=== PATIENT | female | born 1965 | race Caucasian/White ===

== ENCOUNTER 2020-02-11 04:31 | Day surgery (SDC) | payer OTHER ==
--- OUTSIDE RECORDS SUMMARY | 2020-01-31 07:52 | XMS ---
:1965 Author Organization [facility] Support Name Relationship Address Phone [facility] Unavailable [address] [place] [address] FAVIOLA FISHER SON [address] [address] Re-disclosure Warning The records that you are about to access may contain information from federally- assisted alcohol or drug abuse programs. If such information is present, then the following federally mandated warning applies: This information has been disclosed to you from records protected by federal confidentiality rules (42 CFR part 2). The federal rules prohibit you from making any further disclosure of this information unless further disclosure is expressly permitted by the written consent of the person to whom it pertains or as otherwise permitted by 42 CFR part 2. A general authorization for the release of medical or other information is NOT sufficient for this purpose. The Federal rules restrict any use of the information to criminally investigate or prosecute any alcohol or drug abuse patient.The records that you are about to access may contain highly sensitive health information, the redisclosure of which is protected by Article 27-F of the [facility] Public Health law. If you continue you may haveaccess to information: Regarding HIV / AIDS; Provided by facilities licensed or operated by the [facility] Office of Mental Health; or Provided by the [facility] Office for People With Developmental Disabilities. If such information is present, then the following [facility] mandated warning applies: This information has been disclosed to you from confidential records which are protected by state law. State law prohibits you from making any further disclosure of this information without the specific written consent of the person to whom it pertains, or as otherwise permitted by law. Any unauthorized further disclosure in violation of state law may result in a fine or fpc sentence or both. A general authorization for the release of medical or other information is NOT sufficient authorization for further disclosure. Insurance Providers Payer name Policy type / Policy ID Covered Covered constitution party's Policy Plan Coverage type constitution party ID relationship to Clark Information clark [employer] HMO [id number] SP [id number] Results ID Date Data Source [id number] 12/03/2019 12:00:00 AM EDT [facility] Name Value Range Interpretation Code Description Data Sultana rce(s) Supporting Document(s ) 2019-nCoV [facility] RNA XXX ISELA+probe- Imp [facility] and reported by [employer]. ID Date Data Source [id number] 09/04/2019 05:09:00 PM EDT [facility] Name Value Range Interpretation Description Data Sup porting Code Source(s) Document(s ) 2019 Novel [facility] Coronavirus RNA Interpretation Unspecified Specimen Qualitative ISELA Probe Detection This lab was ordered by [facility] and reported by [facility]. Procedure
[2020-02-10 14:07] VITALS: BMI 23.6
--- OUTSIDE RECORDS SUMMARY | 2020-02-11 04:35 | XMS ---
:1965 Author Organization [facility] Support Name Relationship Address Phone [facility] Unavailable [address] [phone] [place] [address] FAVIOLA FISHER SON [address] [place] [address] Re-disclosure Warning The records that you are [...] is protected by Article 27-F of the [facility] Public Health law. If you continue you may haveaccess to information: Regarding HIV / AIDS; Provided by facilities licensed or operated by the [facility] Office of Mental Health; or Provided by the [facility] Office for People With Developmental Disabilities. If such information is present, then the following [facility] mandated warning applies: This information has been [...] law may result in a fine or senior care sentence or both. A general authorization for the release of medical or other information is NOT sufficient authorization for further disclosure. Insurance Providers Payer name Policy type / Policy ID Covered Covered green party's Policy Plan Coverage type green party ID relationship to Clark Information clark [employer] HMO [id number] SP [id number] 5 Results ID Date Data Source [id number] 02/06/2020 05:36:00 PM EDT [facility] Name Value Range Interpretation Description Data Sup porting Code Source(s) Document(s ) SARS [facility] coronavirus 2 RNA This lab was ordered by [facility] and reported by [facility]. ID Date Data Source [id number] 12/03/2019 12:00:00 AM EDT [facility] Name Value Range Interpretation Code Description Data Sultana rce(s) Supporting Document(s ) 2019-nCoV [facility] RNA XXX ISELA+probe- Imp This lab [facility] by [facility] and reported by [employer] ID Date Data Source [id number] 09/04/2019 05:09:00 PM EDT [facility] Name Value Range Interpretation Description Data Sup porting Code Source(s) Document(s ) 2019 Novel [facility] Coronavirus RNA Interpretation Unspecified Specimen Qualitative ISELA Probe Detection This lab was ordered by [facility] and reported by [facility]. Procedure
[2020-02-11] MEDS ORDERED: MIDAZOLAM HCL 2 MG/2 ML SINGLE DOSE VIAL ONE (14:25)
[2020-02-11] MEDS ORDERED: PROPOFOL 20 ML ONE (14:25)
[2020-02-11] MEDS ORDERED: DEXAMETHASONE SOD PHOSPHATE 4 MG/1 ML VIAL ONE (14:37)
[2020-02-11] MEDS ORDERED: KETOROLAC TROMETHAMINE 30 MG/1 ML VIAL ONE (14:37)
[2020-02-11] MEDS ORDERED: LIDOCAINE HCL/PF 2% SDV 5ML VIAL ONE (14:37)
[2020-02-11] MEDS ORDERED: ceFAZolin SODIUM 1 GM VIAL ONE (14:50)
[2020-02-11] MEDS ORDERED: ceFAZolin SODIUM 1 GM VIAL IVPB ONE (14:50)
--- NOTE | 2020-02-11 15:58 | OP ---
DATE OF OPERATION: 02/11/2020 PREOPERATIVE DIAGNOSIS: Tenosynovitis of the right wrist. POSTOPERATIVE DIAGNOSIS: Partial rupture from the extensor plus tenosynovitis. SURGEON: Mark Joseph MD ANESTHESIA: General. PROCEDURE: Tenosynovectomy and debridement of extensor tendon. DESCRIPTION OF PROCEDURE: After the induction of general anesthesia and with the tourniquet applied and inflated at the proximal aspect of the limb, the entire hand and forearm now were prepped and draped in the usual manner. A 4 cm incision extending from the tip of the radial styloid proximally. It was deepened through the subcutaneous tissue. The sensory branch of the radial nerve was identified and retracted. At this point the finger palpation indicated evidence of fluctuation along the tendon, but it was difficult to assess the exact nature of the pathology. An incision was made in the hernesto of the extensor tendon which was found to be quite thickened and at this point a large amount of serous fluid extruded out of the joint. The release now was extended distally and proximally and at this point there was an obvious partial tear of the extensor tendon with a small flap emanating from the body of the tendon. There was no evidence of complete disruption. Debridement of the damaged tendon was done. The testing of the tendon showed the integrity. A partial excision of the hernesto was done. Hemostasis was obtained and the wound closed in a single layer of 4-0 nylon. A dressing was applied. The tourniquet was deflated. Prompt circulation returned to the limb. The patient tolerated the procedure and left the operating room in excellent condition. Yanna [id number]
[2020-02-11] MEDS ORDERED: ONDANSETRON 4 MG/2 ML VIAL IVPUSH PRN (16:18)
[2020-02-11] MEDS ORDERED: oxyCODONE HCL 5 MG TABLET PO PRN (16:18)
[2020-02-11] MEDS ORDERED: LACTATED RINGERS SOLUTION 1,000 ML IV SCH (16:30)
[2020-02-11] MEDS ORDERED: oxyCODONE HCL 5 MG TABLET ONE (17:33)
[2020-02-11 17:42] VITALS: TEMP 97.7
[2020-02-11 18:01] VITALS: BP 114/77; PULSE 62
--- NOTE | 2020-02-13 17:35 | PATH ---
Surgical Pathology Report Patient Name: SELWYN WILKINSON [facility]. Rec. #: [id number] /Age/Gender: 1965 (Age: 54) / F Account: [id number] Location: [facility] SUR[facility] Taken: 02/11/2020 Received: 02/12/2020 Reported: 02/13/2020 Physicians: Mark Joseph M.D. Specimen(s) Received RIGHT TENOSYNOVIUM Clinical History Right radial styloid tendon synovitis Final Diagnosis TENOSYNOVIUM, RIGHT, TENOSYNOVECTOMY: BENIGN DENSE FIBROCONNECTIVE TISSUE. Electronically Signed Janneth Cantor M.D. Gross Description Received in formalin labeled "right tenosynovium," are 3 banerjee-yellow fragments of soft tissue ranging from 0.3-0.9 cm in greatest dimension, consistent with tenosynovium. The specimen is submitted in toto in one cassette. /02/12/2020 saudi/02/12/2020
== END 2020-02-11 18:02 | disposition home or self-care (01) ==
LOC: JASU-SURG 04:31
PROVIDERS: ATTEND Orthopaedic Surgery
PROC: 0XBG0ZZ Excision of Right Wrist Region, Open Approach (ICD-10-PCS; principal; 2020-02-11 14:00)
DX: M65.4 Radial styloid tenosynovitis [de Quervain] (principal)
CPT/HCPCS: 88304-TC; 94760